=== PATIENT | female | born 1950 | race Caucasian/White ===

== ENCOUNTER → 2016-08-30 | Outpatient (CLI) | payer BC ==
[2014-09-04 13:33] VITALS: BP 122/59
--- NOTE | 2016-08-30 22:26 | RAD ---
LUMBAR SPINE RADIOGRAPHS CLINICAL HISTORY: 66-year-old female with low back pain. COMPARISON: None. FINDINGS: 3 views of the lumbar spine were obtained. There are 5 nonrib-bearing lumbar type vertebra l bodies. Levo rotatory scoliotic curvature of the lumbar spine apex L3. Vertebral body heights are maintained. Loss of disc space L1-L2 and L3-L4 with degenerative retrolisthesis L4 on L5. Vacuum di sc at L1-L2 and L3-L4. Diffuse anterior osteophytosis would facet hypertrophy from L4-S1. No acute f racture or malalignment There is no sacroiliac diastasis. IMPRESSION: 1. Multilevel degenerative change with levo rotatory scoliotic curvature . 2. No compression fracture deformity or malalignment on screening lumbar spine radiographs. Reported By:
--- NOTE | 2016-08-30 22:36 | RAD ---
HISTORY: 66-year-old female status post ORIF right ankle. Study: Three views right ankle. Comparison: Right ankle radiographs November 12, 2014. Findings: Talar dome is intact and ankle mortise is congruent. Lateral compression plate with anchoring screws transfix a well-healed distal fibular fracture. Compression screws within the medial malleolus greene sfixing malleolar fracture. No evidence of hardware loosening or failure. Imaged joints are congruen t. No fracture. Soft tissues unremarkable. IMPRESSION: 1. Status post ORIF right ankle fractures with good interval healing and no evidence of hardware fa ilure. No new fracture. Reported By:
--- NOTE | 2016-08-30 22:38 | RAD ---
HISTORY: 66-year-old female status post ORIF left ankle. Study: Three views left ankle. Comparison: None. Findings: Talar dome is intact . Ankle mortise is congruent. Compression plate with anchoring screws along the lateral aspect of the fibula without evidence of hardware failure. Single interosseous screw with m edial malleolar screw in both without evidence of hardware failure or loosening. Imaged joint spaces are congruent. No fractures. Soft tissues unremarkable. IMPRESSION: 1. Status post ORIF left ankle without evidence of hardware failure and no new fracture. Reported By:
--- NOTE | 2016-08-31 08:18 | MG ---
Examination: Bilateral screening mammogram. Clinical history: Routine screening. Technique: Digital CC and MLO views of both breasts were obtained. Computer aided detection analysis was performed and used during the interpretation. Comparison: 07/28/2015. Findings: The breasts are composed predominantly of fat. Benign-appearing calcifications are noted in the left breast. No suspicious mass, area of architectural distortion or suspicious cluster of microcalcifications is noted. Impression: 1. No mammographic evidence of malignancy. BI-RADS category 2-benign findings. Recommend routine annual screening mammogram. Diagnostic CAD was utilized and reviewed. * 0 (ZERO) - ASSESSMENT INCOMPLETE; ADDITIONAL IMAGING IS NEEDED. * 0C - ASSESSMENT INCOMPLETE, NEEDS ADDITIONAL IMAGING EVALUATION AND/OR PRIOR MAMMOGRAMS FOR COMPAR YOSEF. * 1/1 (ONE) - NEGATIVE. * 2/II (TWO) - BENIGN FINDINGS. * 3/III (THREE) - PROBABLY BENIGN FINDING; SHORT INTERVAL FOLLOW-UP SUGGESTED. * 4/IV (FOUR) - SUSPICIOUS ABNORMALITY; BIOPSY SHOULD BE CONSIDERED. * 5/V - HIGHLY SUSPICIOUS OF MALIGNANCY; BIOPSY SHOULD BE PERFORMED. * 6/IV - KNOWN BIOPSY PROVEN MALIGNANCY-APPROPRIATE ACTION SHOULD BE TAKEN. A NEGATIVE X-RAY REPORT SHOULD NOT DELAY BIOPSY IF A DOMINANT OR CLINICALLY SUSPICIOUS MASS IS PRESENT; 4 TO 8 PERCENT OF CANCERS ARE NOT IDENTIFIED BY X-RAY. A NEGATIVE REPORT MAY REINFORCE THE CLINICAL IMPRESSION. ADENOSIS AND DENSE BREASTS MAY OBSCURE AN UNDERLYING NEOPLASM. Reported By:
== END ==
LOC: RAD 19:22
PROVIDERS: ATTEND Internal Medicine
DX: Z12.31 Encounter for screening mammogram for malignant neoplasm of breast (principal); M54.5 Low back pain; M25.572 Pain in left ankle and joints of left foot; M25.571 Pain in right ankle and joints of right foot; Z98.890 Other specified postprocedural states
CPT/HCPCS: 72100; 73610; 77067

== ENCOUNTER → 2016-09-19 | Outpatient (CLI) | payer BC ==
[2014-09-04 13:33] VITALS: BP 122/59
--- NOTE | 2016-09-19 23:20 | RAD ---
HISTORY: Knee pain Study: Right knee series Comparison: None Findings: There is mild joint space narrowing in the knee. There are prominent osteophytes medially. There is moderate narrowing of the patellofemoral joint. No acute fracture for dislocation is seen there is n o joint effusion. The bones are osteopenic. 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 Reported By:
== END ==
LOC: RAD 11:10
PROVIDERS: ATTEND Internal Medicine
DX: M25.561 Pain in right knee (principal)
CPT/HCPCS: 73564

== ENCOUNTER → 2016-09-27 | Outpatient (CLI) | payer BC ==
[2014-09-04 13:33] VITALS: BP 122/59
--- NOTE | 2016-09-27 13:54 | MRI ---
MRI right knee without contrast Indication: Right knee pain after fall Technique: Multiplanar, multi sequence imaging of the right knee without IV contrast administration. Findings: The extensor mechanism is intact. There is a small-sized suprapatellar joint effusion. There is full thickness chondral loss within the patellar articular cartilage with subchondral marrow edema and c ystic change within the median patellar ridge. The patella remains well positioned within the femora l trochlea. The medial lateral retinacular complexes are intact. Subcortical cyst formation is also noted within the femoral trochlea with small trochlear osteophytes present. There is a small poplite al fossa cyst. Pes anserine tendons are normal. Popliteus muscle is normal. There is a large complex fluid collection within the anterior knee measuring approximately 8.4 x 1.8 x 7.3 cm containing multiple strands of decreased PD signal. No fluid fluid level or hemorrhage . The medial femorotibial compartment demonstrates diffuse chondral thinning and a few small subchondr al cyst without full thickness chondral loss identified. There is extra-articular full thickness cho ndral loss within the lateral femoral condyle anteriorly. Small osteophytes are noted within the med ial and lateral femorotibial compartments. Cruciate and collateral ligaments are intact. Biceps femo ris and iliotibial band are normal. The medial and lateral menisci are intact. Impression: 1.Large subcutaneous fluid collection anterior to the patella most likely represents prepatellar bur sitis containing debris, given lack of air-fluid level or definite increased T1 signal the possibili ty of a soft tissue contusion is felt less likely but not entirely excluded and clinical correlation is needed. 2. Moderate patellofemoral and mild to moderate medial and lateral femorotibial compartment degenera tive change. 3. No acute ligamentous or meniscal tear. 4. Small suprapatellar joint effusion and popliteal fossa cyst. Reported By:
== END ==
LOC: RAD 09:48
PROVIDERS: ATTEND Internal Medicine
DX: M25.561 Pain in right knee (principal); Z91.81 History of falling; Z87.828 Personal history of other (healed) physical injury and trauma
CPT/HCPCS: 73721

== ENCOUNTER 2016-10-19 14:28 | Emergency (ER) | payer BC ==
[2016-10-19] MEDS ORDERED: NS 1000 ML 1,000 ML ONE ×2 (14:29→15:34)
[2016-10-19] MEDS ORDERED: ZOFRAN INJ 4 MG VIAL ONE (14:30)
[2016-10-19] MEDS ORDERED: ZOFRAN INJ 4 MG VIAL IVP ONE (14:41)
[2016-10-19] MEDS ORDERED: NS 1000 ML 1,000 ML IV ONE (14:41)
[2016-10-19 14:47] VITALS: BP 160/78; BMI 34.0
--- NOTE | 2016-10-19 14:47 | DR.GENAD ---
HPI - PCP Primary Care Physician: [id number] - Complaint/Symptoms Chief Complaint Doctors Comments: Patient states that she has had vomiting for one day and epigastric pain. She denies diarrhea. Admits to fever and headache. PMH - PMH Past Surgical History: Yes Surgical History: Appendectomy, Ortho Surgery (LLE fx w/surgery) - Family History Family Medical History: Hypertension - Social History Do you use any recreational Drugs:: No ROS - Review of Systems Constitutional: No Symptoms Reported Eyes: No Symptoms Reported ENTM: No Symptoms Reported Respiratoy: No Symptoms Reported Cardiovascular: No Symptoms Reported Gastrointestinal/Abdominal: Abdominal Pain (epigastric), Vomiting Genitourinary: No Symptoms Reported Neurological: No Symptoms Reported Musculoskeletal: No Symptoms Reported Integumentary: No Symptoms Reported Hematologic/Lymphatic: No Symptoms Reported Endocrine: No Symptoms Reported Psychiatric: No Symptoms Reported All Other Systems: Reviewed and Negative PE - Vital Signs Vitals: Temperature 98.2 F Pulse Rate 88 Respiratory Rate 18 Blood Pressure [Right Arm] 122/59 Blood Pressure [Left Arm] 119/61 Blood Pressure 160/78 O2 Sat by Pulse Oximetry 99 - General Limitations: No Limitations General Appearance: Alert, In No Apparent Distress - Head Head Exam: Normal Inspection, Atraumatic - Eyes Eye exam: Normal Appearance, PERRL, EOMI - ENT ENT Exam: Normal Exam External Ear Exam: Normal External Inspection TM/Canal Exam: Bilateral Normal Nose Exam: Normal Nose Exam, Sinus Tenderness Mouth Exam: Normal Inspection Throat Exam: Normal Inspection - Neck Neck Exam: Normal Inspection - Chest Chest Inspection: Normal Inspection - Respiratory Respiratory Exam: Normal Lung Sounds Bilat Respiratory Exam: Bilateral Clear to Auscultation - Cardiovascular Cardiovascular Exam: Regular Rate, Normal Rhythm - Abdominal Exam Abdominal Exam: Normal Inspection, Normal Bowel Sounds, Soft Abdominal Tenderness: Epigastrium, Suprapubic, Diffuse - Extremities Extremities Exam: negative: Normal Inspection, Full ROM, Tenderness, Normal Capillary Refill, Edema, Joint Swelling, Calf Tenderness, Other - Back Back Exam: Normal Inspection, Full ROM - Neurologic Neurological Exam: Alert, Oriented X3, CN II-XII Intact - Psychiatric Psychiatric Exam: Normal Affect, Normal Mood - Skin Skin Exam: Warm, Dry, Intact ROR - Labs Reviewed Laboratory Results Reviewed?: Yes (H pylori positive) Result Diagrams: 10/19/16 14:45 10/19/16 14:45 Laboratory: WBC 6.6 X10^3/uL (3.6-10.0) 10/19/16 14:45 RBC 4.03 X10^6/uL (3.5-5.4) 10/19/16 14:45 Hgb 13.4 g/dL (12.0-16.0) 10/19/16 14:45 Hct 40.1 % (36.0-47.0) 10/19/16 14:45 MCV 99.5 fL (80.0-100.0) 10/19/16 14:45 MCH 33.1 pg (27.0-34.0) 10/19/16 14:45 MCHC 33.3 g/dL (33.0-35.0) 10/19/16 14:45 RDW 13.7 % (11.6-16.5) 10/19/16 14:45 Plt Count 204 X10^3/uL (150.0-450.0) 10/19/16 14:45 MPV 8.4 fL (7.4-11.0) 10/19/16 14:45 Neut % 71.9 % (42.0-75.0) 10/19/16 14:45 Lymph % 18.2 % (21.0-51.0) L 10/19/16 14:45 [place] % 8.4 % (0.0-13.0) 10/19/16 14:45 Eos % 0.7 % (0.9-2.9) L 10/19/16 14:45 Baso % 0.8 % (0.2-1.0) 10/19/16 14:45 Neut # 4.7 x10^3/uL (2.2-4.8) 10/19/16 14:45 Lymph # 1.2 X10^3/uL (1.3-2.9) L 10/19/16 14:45 [place] # 0.6 x10^3/uL (0.3-0.8) 10/19/16 14:45 Eos # 0.0 x10^3/uL (0.0-0.2) 10/19/16 14:45 Baso # 0.1 X10^3/uL (0.0-0.1) 10/19/16 14:45 Absolute Nucleated RBC 0.2 /100WBC 10/19/16 14:45 Sodium 145 mmol/L (136-145) 10/19/16 14:45 Corrected Sodium TNP 10/19/16 14:45 Potassium 3.7 mmol/L (3.5-5.1) 10/19/16 14:45 Chloride 111 mmol/L (98-107) H 10/19/16 14:45 Carbon Dioxide 27.6 mmol/L (21-32) 10/19/16 14:45 BUN 14 mg/dL (7-18) 10/19/16 14:45 Creatinine 0.84 mg/dL (0.55-1.02) 10/19/16 14:45 Est GFR (MDRD) Af Amer > 60 (>60) 10/19/16 14:45 Est GFR (MDRD) Non-Af > 60 (>60) 10/19/16 14:45 Glucose 104 mg/dL (65-99) H 10/19/16 14:45 Calcium 8.6 mg/dL (8.5-10.1) 10/19/16 14:45 Corrected Calcium 9.4 mg/dL (8.5-10.1) 10/19/16 14:45 Total Bilirubin 0.30 mg/dL (0.2-1.0) 10/19/16 14:45 AST 15 Units/L (15-37) 10/19/16 14:45 ALT 26 Units/L (12-78) 10/19/16 14:45 Alkaline Phosphatase 45 Units/L (46-116) L 10/19/16 14:45 Total Protein 6.5 g/dL (6.4-8.2) 10/19/16 14:45 Albumin 3.0 g/dL (3.4-5.0) L 10/19/16 14:45 Globulin 3.5 g/dL (2.5-4.5) 10/19/16 14:45 Albumin/Globulin Ratio 0.9 Ratio (1.1-2.1) L 10/19/16 14:45 Amylase 119 Units/L (25-115) H 10/19/16 14:45 Lipase 360 Units/L (73-393) 10/19/16 14:45 H. pylori IgG Antibody Positive (NEGATIVE) A 10/19/16 14:45 Influenza A (H1N1) PCR Not detected (NOT DETECT) 10/19/16 14:58 Influenza Type A (PCR) Negative (NEGATIVE) 10/19/16 14:58 Influenza Type B (PCR) Negative (NEGATIVE) 10/19/16 14:58 Streptococcus Screen Negative (NEGATIVE) 10/19/16 14:58 - XRAY XRAY Interpreted by: Radiologist - Diagnosis Discharge Problem: Helicobacter pylori gastritis Vomiting Qualifiers: Vomiting type: unspecified Vomiting Intractability: non-intractable Nausea presence: with nausea Qualified Code(s): R11.2 - Nausea with vomiting, unspecified - Discharge Plan Condition: Stable - Follow ups/Referrals Follow ups/Referrals: Gerber Rios [Primary Care Provider] - 3 days - Instructions
[2016-10-19] MEDS ORDERED: MORPHINE SULFATE INJ 4 MG IVP ONE (14:48)
[2016-10-19 15:05] LABS: BASOPHILS # (AUTO) 0.1 X10^3/uL (0.0-0.1); BASOPHILS % (AUTO) 0.8 % (0.2-1.0); EOSINOPHILS % (AUTO) 0.7 % (0.9-2.9); HEMATOCRIT 40.1 % (36.0-47.0); HEMOGLOBIN 13.4 g/dL (12.0-16.0); LYMPHOCYTES # (AUTO) 1.2 X10^3/uL (1.3-2.9); LYMPHOCYTES % (AUTO) 18.2 % (21.0-51.0); MEAN CORPUSCULAR HEMOGLOBIN 33.1 pg (27.0-34.0); MEAN CORPUSCULAR HGB CONC 33.3 g/dL (33.0-35.0); MEAN CORPUSCULAR VOLUME 99.5 fL (80.0-100.0); MEAN PLATELET VOLUME 8.4 fL (7.4-11.0); MONOCYTES # (AUTO) 0.6 x10^3/uL (0.3-0.8); MONOCYTES % (AUTO) 8.4 % (0.0-13.0); NEUTROPHILS # (AUTO) 4.7 x10^3/uL (2.2-4.8); NEUTROPHILS % (AUTO) 71.9 % (42.0-75.0); PLATELET COUNT 204 X10^3/uL (150.0-450.0); RED BLOOD COUNT 4.03 X10^6/uL (3.5-5.4); RED CELL DISTRIBUTION WIDTH 13.7 % (11.6-16.5); WHITE BLOOD COUNT 6.6 X10^3/uL (3.6-10.0)
[2016-10-19 15:17] LABS: ALANINE AMINOTRANSFERASE 26 Units/L (12-78); ALKALINE PHOSPHATASE 45 Units/L (46-116); AMYLASE 119 Units/L (25-115); ASPARTATE AMINO TRANSFERASE 15 Units/L (15-37); BLOOD UREA NITROGEN 14 mg/dL (7-18); CALCIUM 8.6 mg/dL (8.5-10.1); CARBON DIOXIDE 27.6 mmol/L (21-32); CHLORIDE 111 mmol/L (98-107); COR CA(FOR HYPOALB) 9.4 mg/dL (8.5-10.1); CREATININE 0.84 mg/dL (0.55-1.02); GLUCOSE 104 mg/dL (65-99); LIPASE 360 Units/L (73-393); SODIUM 145 mmol/L (136-145); TOTAL PROTEIN 6.5 g/dL (6.4-8.2); eGFR BLACK RACES > 60 (>60); eGFR NON BLACK RACES > 60 (>60)
[2016-10-19] MEDS ORDERED: MORPHINE SULFATE INJ 4 MG ONE (15:32)
[2016-10-19] MEDS ORDERED: BIAXIN TAB 500 MG PO ONE (17:48)
[2016-10-19] MEDS ORDERED: ZOFRAN TAB 4 MG ONE (17:48)
[2016-10-19] MEDS ORDERED: AMOXIL CAP 500 MG PO ONE (17:50)
[2016-10-19] MEDS ORDERED: PREVACID PO ONE (17:55)
[2016-10-19] MEDS ORDERED: LEVSIN/MAALOX/LIDOC VISC PO ONE (18:01)
[2016-10-19] MEDS ORDERED: LEVSIN/MAALOX/LIDOC VISC ONE (18:01)
== END 2016-10-19 18:19 | disposition home or self-care (01) ==
LOC: ER 14:28
DX: R11.2 Nausea with vomiting, unspecified (principal); B96.81 Helicobacter pylori [H. pylori] as the cause of diseases classified elsewhere
CPT/HCPCS: 36415; 80053; 82150; 83690; 85025; 86677; 87070; 87502; 87503; 87880; 96365; 96374; 96375; 99283; 99284; A4222; S0181; J2270; J2405

== ENCOUNTER → 2016-11-09 | Outpatient (CLI) | payer BC ==
[2016-10-19 14:47] VITALS: BP 160/78
[2016-11-09 09:01] LABS: T4 (THYROXINE) 7.7 ug/dL (4.7-13.3); TSH (3RD GENERATION) 3.106 uIU/mL (0.358-3.74)
== END | disposition home or self-care (01) ==
LOC: LAB 07:52
PROVIDERS: ATTEND Internal Medicine
DX: E03.8 Other specified hypothyroidism (principal); E55.9 Vitamin D deficiency, unspecified; E53.8 Deficiency of other specified B group vitamins
CPT/HCPCS: 36415; 82306; 82607; 82746; 84436; 84443

== ENCOUNTER → 2017-09-26 | Outpatient (CLI) | payer BC ==
--- NOTE | 2017-09-27 13:33 | MG ---
HISTORY: SCREENING Comparison: 08/30/16 and 07/28/15 FINDINGS: Bilateral CC and MLO projections of the right and left breast were obtained. Scattered fibroglandula r tissue is seen to be present without significant interval change. No suspicious architectural dist ortion, mass or clustered microcalcifications can be observed to suggest malignancy. No skin thicken ing or nipple retraction is appreciated. No pathological lymphadenopathy can be identified. Benign- appearing calcifications are noted within the right and left breast. IMPRESSION: NO RADIOGRAPHIC EVIDENCE OF MALIGNANCY. ACR CATEGORY 2 - benign findings. FOLLOW-UP EXAM 1 YEAR. Diagnostic CAD was utilized and reviewed. * 0 (ZERO) - ASSESSMENT INCOMPLETE; ADDITIONAL IMAGING IS NEEDED. * 1/1 (ONE) - NEGATIVE. * 2/II (TWO) - BENIGN FINDINGS. * 3/III (THREE) - PROBABLY BENIGN FINDING; SHORT INTERVAL FOLLOW-UP SUGGESTED. * 4/IV (FOUR) - SUSPICIOUS ABNORMALITY; BIOPSY SHOULD BE CONSIDERED. * 5/V - HIGHLY SUSPICIOUS OF MALIGNANCY; BIOPSY SHOULD BE PERFORMED. A NEGATIVE X-RAY REPORT SHOULD NOT DELAY BIOPSY IF A DOMINANT OR CLINICALLY SUSPICIOUS MASS IS PRESENT; 4 TO 8 PERCENT OF CANCERS ARE NOT IDENTIFIED BY X-RAY. A NEGA TIVE REPORT MAY REINFORCE THE CLINICAL IMPRESSION. ADENOSIS AND DENSE BREASTS MAY OBSCURE AN UNDERLY ING NEOPLASM. Reported By:
== END ==
LOC: RAD 08:20
PROVIDERS: ATTEND Specialist
DX: Z12.31 Encounter for screening mammogram for malignant neoplasm of breast (principal)
CPT/HCPCS: 77067

== ENCOUNTER 2021-10-15 17:11 | Observation (INO) ==
[2021-10-15 17:21] VITALS: BMI 25.8
--- NOTE | 2021-10-15 17:44 | DR.AMS ---
HPI Time Seen Time Seen by Provider: 10/15/21 17:33 PCP Primary Care Physician: DR GRADY HPI Comment HPI Comment: A 71 y/o female presenting with witnessed confusional states at work. Reportedly this lasted several minutes. She was not her usual self, was not following commands or prompts and had slurred speech. She is s/p recent ORIF of an ankle fracture. Complaint Chief Complaint:: PT WAS WORKING WHEN SUDDENLY PT HAD EPISODE OF ALTERED MENTAL STATUS WITH SLURRED SPEECH AND UNABLE TO DETERMINE WHAT WAS GOING ON AROUND HER. THIS WAS WITNESSED BY COWORKERS WHO STATED THAT EPISODE LASTED APPROXIMATELY 3-4 MINUTES. AT TIME OF TRIAGE PT IS AWAKE, ALERT AND ORIENTED. COVID-19 Coronavirus risk:travel/contact w/high risk person: No Has patient experienced Coronavirus symptoms: No Reviewed Nurses Notes Reviewed: Yes Source History Provided: Patient and Other (Co-workers. ) Mode of Arrival Mode of Arrival: Wheelchair Timing Onset of Chief Complaint: 10/15/21 Came On: Gradually Symptoms: Improving Symptom Onset: Known Duration How lon Duration: Minutes Quality Quality: Decreased Alertness and Change in Behavior Severity Severity: Moderate Context Recent: None History Of: None Associated Signs and Symptoms Associated Signs and Symptoms: Slurred Speech, Confusion and Decreased LOC PMH PMH Past Medical History: Yes Past Medical History: Hypothyroidism Past Surgical History: Yes Surgical History: Ortho Surgery Family History History of Family Medical Conditions: Yes Family Medical History: Heart Failure Social History Does patient currently use any type of tobacco product: No Have you used tobacco products in the last 12 months: No Type of Tobacco Use: None Does any household member use tobacco: No Alcohol Use: None Do you use any recreational Drugs:: No Lives With: Family Lives Where: Home Travel Risk Coronavirus risk:travel/contact w/high risk person: No Has patient experienced Coronavirus symptoms: No Infectious screening In the last 2 months have you had wt loss of >10#?: NO Have you had fever, night sweats or hemotysis?: No Have you traveled outside the country in the last 6 months?: No Isolation: Standard ROS Review of Systems Constitutional: No Symptoms Reported Eyes: No Symptoms Reported ENTM: No Symptoms Reported Respiratoy: No Symptoms Reported Cardiovascular: No Symptoms Reported Gastrointestinal/Abdominal: No Symptoms Reported Genitourinary: No Symptoms Reported Neurological: Other (Confusion and slurred speech) Musculoskeletal: No Symptoms Reported Integumentary: No Symptoms Reported Hematologic/Lymphatic: No Symptoms Reported Endocrine: No Symptoms Reported Psychiatric: No Symptoms Reported PE Vitals Vital Signs: Temp Pulse Resp BP BP BP Pulse Ox 10/15/21 18:30 75 19 100 10/15/21 18:15 75 19 100 10/15/21 18:03 78 99 10/15/21 17:45 81 10/15/21 17:30 78 26 H 100 10/15/21 17:19 80 20 100 10/15/21 17:13 98.1 F 80 20 114/75 98 12/12/20 22:52 113/55 12/12/20 22:30 113/55 09/01/14 16:00 119/61 General Limitations: No Limitations General Appearance: Alert and In No Apparent Distress Head Head Exam: Normal Inspection, Atraumatic and Normocephalic Eyes Eye exam: Normal Appearance, PERRL and EOMI ENT ENT Exam: Normal Exam, Normal Oropharynx, Normal External Ear Exam and Mucous Membranes Moist Neck Neck Exam: Normal Inspection, Full ROM and Trachea Midline Chest Chest Inspection: Normal Inspection and Symmetric Chest Wall Rise Respiratory Respiratory Exam: Normal Lung Sounds Bilat Cardiovascular Cardiovascular Exam: Regular Rate, Normal Rhythm, Normal Heart Sounds, +S1 and +S2 Abdominal Exam Abdominal Exam: Normal Inspection, Normal Bowel Sounds and Soft Extremities Extremities Exam: Normal Inspection and Full ROM Back Back Exam: Normal Inspection and Full ROM Neurological Neurological Exam: Alert, Oriented X3 and CN II-XII Intact Psychological Psychiatric Exam: Normal Affect and Normal Mood Skin Skin Exam: Intact MDM Differential Diagnosis Metabolic: Hypoglycemia and Hyponatremia Structural: CVA COURSE Treatment Treatment: I discussed diagnostic test results with the pt. and recommended OBSERVATION STATUS for her. I then spoke with source water protection specialist provider, Dr. Kelley about the pt. (regards to presentation and findings). Dr. Kelley also agreed with recommendation for observation status. Admit orders have been placed. Reevaluation 1st: Improved (her confusional state has resolved. ) Education/Counseling Education/Counseling: Patient, Education and Counseling Educated On: Treatment, Diagnosis, Prognosis and Needs for Follow Up ROR Labs Reviewed Laboratory Results Reviewed?: Yes Result Diagrams: 10/15/21 17:30 10/15/21 17:30 Laboratory: WBC 10.2 X10^3/uL (3.6-10.0) H 10/15/21 17:30 RBC 3.68 X10^6/uL (3.5-5.4) 10/15/21 17: Hgb 11.6 g/dL (12.0-16.0) L 10/15/21 17: Hct 34.4 % (36.0-47.0) L 10/15/21: MCV 93.2 fL (80.0-100.0) 10/15/21: MCH 31.5 pg (27.0-34.0) 10/15/21 17: MCHC 33.8 g/dL (33.0-35.0) 10/15/21: RDW 13.6 % (11.6-16.5) 10/15/21: Plt Count 275 X10^3/uL (150.0-450.0) 10/15/21: MPV 7.3 fL (7.4-11.0) L 10/15/21: Neut % (Auto) 66.2 % (42.0-75.0) 10/15/21 17: Lymph % (Auto) 22.5 % (21.0-51.0) 10/15/21: [place] % (Auto) 7.5 % (0.0-13.0) 10/15/21: Eos % (Auto) 3.3 % (0.9-2.9) H 10/15/21: Baso % (Auto) 0.5 % (0.2-1.0) 10/15/21 17: Neut # (Auto) 6.8 x10^3/uL (2.2-4.8) H 10/15/21 17: Lymph # (Auto) 2.3 X10^3/uL (1.3-2.9) 10/15/21 17:30 [place] # (Auto) 0.8 x10^3/uL (0.3-0.8) 10/15/21 17: Eos # (Auto) 0.3 x10^3/uL (0.0-0.2) H 10/15/21 17:30 Baso # (Auto) 0.0 X10^3/uL (0.0-0.1) 10/15/21 17:30 Absolute Nucleated RBC 0.1 /100WBC 10/15/21 17:30 PT 12.2 SECONDS (11.8-14.3) 10/15/21 17:30 INR Target Range - 10/15/21 17: INR 0.93 (0.8-1.3) 10/15/21 17:30 APTT 27.5 SECONDS (22.9-36.5) 10/15/21 17: PTT Comment - 10/15/21 17:30 Sodium 130 mmol/L (136-145) L 10/15/21 17:30 Corrected Sodium 131 mmol/L (136-145) L 10/15/21 17:30 Potassium 3.7 mmol/L (3.5-5.1) 10/15/21 17:30 Chloride 94 mmol/L (98-107) L 10/15/21 17:30 Carbon Dioxide 29.2 mmol/L (21-32) 10/15/21 17:30 BUN 22 mg/dL (7-18) H 10/15/21 17:30 Creatinine 1.50 mg/dL (0.55-1.02) H 10/15/21 17:30 Est GFR (MDRD) Af Amer 44 (>60) L 10/15/21 17:30 Est GFR (MDRD) Non-Af 37 (>60) L 10/15/21 17:30 Glucose 131 mg/dL (65-99) H 10/15/21 17:30 Calcium 8.7 mg/dL (8.5-10.1) 10/15/21 17:30 Corrected Calcium 9.4 mg/dL (8.5-10.1) 10/15/21 17:30 Total Bilirubin 0.20 mg/dL (0.2-1.0) 10/15/21 17:30 AST 15 Units/L (15-37) 10/15/21 17:30 ALT 10 Units/L (12-78) L 10/15/21 17:30 Alkaline Phosphatase 73 Units/L (46-116) 10/15/21 17:30 Creatine Kinase 43 Units/L (26-192) 10/15/21 17:30 CK-MB (CK-2) 1.1 ng/mL (0-4.0) 10/15/21 17:30 CK/CKMB % Calc 2.6 % (<4) 10/15/21 17:30 Troponin I High Sens 7.1 ng/L (4.0-60.0) 10/15/21 17:30 Total Protein 6.6 g/dL (6.4-8.2) 10/15/21 17:30 Albumin 3.1 g/dL (3.4-5.0) L 10/15/21 17:30 Globulin 3.5 g/dL (2.5-4.5) 10/15/21 17:30 Albumin/Globulin Ratio 0.9 Ratio (1.1-2.1) L 10/15/21 17:30 Specimen Type Clean catch urine 10/15/21 17:55 Urine Color Pale yellow (YELLOW) 10/15/21 17:55 Urine Appearance Clear (CLEAR) 10/15/21 17:55 Urine pH 6.0 (5.0 - 8.0) 10/15/21 17:55 Ur Specific [place] 1.010 (1.000-1.030) 10/15/21 17:55 Urine Protein Negative (NEGATIVE) 10/15/21 17:55 Urine Glucose (UA) Negative (NEGATIVE) 10/15/21 17:55 Urine Ketones Negative (NEGATIVE) 10/15/21 17:55 Urine Blood Negative (NEGATIVE) 10/15/21 17:55 Urine Nitrite Negative (NEGATIVE) 10/15/21 17:55 Urine Bilirubin Negative (NEGATIVE) 10/15/21 17:55 Urine Urobilinogen Normal (NORMAL) 10/15/21 17:55 Ur Leukocyte Esterase Negative (NEGATIVE) 10/15/21 17:55 XRAY XRAY Interpreted by: Self X-ray Results: CXR: No acute findings. Radiology report is pending. EKG Rate: 77 [place]: Normal Rhythm: NSR Block: None Hypertrophy: None ST: Normal Opioid Opioid Risk Tool Age (Ja box if 16-45): No History of Preadolescent Sexual Abuse: No Total: 0 Total Score Risk Category: Low Risk Copyright: [facility] predicting aberrant behaviors Diagnosis Discharge Problem: Brain TIA, Acute hyponatremia, Dehydration ADDITIONAL NOTES Additional Notes Additional Notes: Name: Mickie MEDRANO#: [id number]: [id number] : 1950ex: FLocation: ER Order Number(s): [id number](s):BRAIN W/O CON Ordering Physician: JOSE F BAKER Primary Care: Gerber Uziel Grady Service Date: 10/15/21 Service Time: 1721 HISTORY AMS.brCOWORKERS NOTICED SLURRED SPEECH STUDY BRAIN W/O CON COMPARISON None TECHNIQUE Mult iple axial images of the head without contrast. Dose reduction techniques including Automated Exposure Control (AEC) and adjustment of mA and kV were utilized. Contrast: None FINDINGS BRAIN PARENCHYMA: No acute hemorrhage, infarct, mass, or mass effect. Jain-white differentiation is maintained. The brain parenchyma has normal density. VENTRICLES/EXTRA-AXIAL SPACES: Normal size and configuration. No hydrocephalus or extra-axial fluid collections. EXTRACRANIAL STRUCTURES:Normal bones and soft tissues. Visualized paranasal sinuses and mastoids are clear. IMPRESSION Normal CT head. Electronically signed by: Mike Joe (October 15, 2021 18:13:01) Report Electronically signed: 10/15/21 [id number] CC: Jose F Baker
[2021-10-15 17:57] LABS: MEAN PLATELET VOLUME 7.3 fL (7.4-11.0)
[2021-10-15 18:04] LABS: BASOPHILS % (AUTO) 0.5 % (0.2-1.0); EOSINOPHILS # (AUTO) 0.3 x10^3/uL (0.0-0.2); EOSINOPHILS % (AUTO) 3.3 % (0.9-2.9); HEMATOCRIT 34.4 % (36.0-47.0); HEMOGLOBIN 11.6 g/dL (12.0-16.0); LYMPHOCYTES # (AUTO) 2.3 X10^3/uL (1.3-2.9); LYMPHOCYTES % (AUTO) 22.5 % (21.0-51.0); MEAN CORPUSCULAR HEMOGLOBIN 31.5 pg (27.0-34.0); MEAN CORPUSCULAR HGB CONC 33.8 g/dL (33.0-35.0); MEAN CORPUSCULAR VOLUME 93.2 fL (80.0-100.0); MONOCYTES # (AUTO) 0.8 x10^3/uL (0.3-0.8); MONOCYTES % (AUTO) 7.5 % (0.0-13.0); NEUTROPHILS # (AUTO) 6.8 x10^3/uL (2.2-4.8); NEUTROPHILS % (AUTO) 66.2 % (42.0-75.0); RED BLOOD COUNT 3.68 X10^6/uL (3.5-5.4); RED CELL DISTRIBUTION WIDTH 13.6 % (11.6-16.5); WHITE BLOOD COUNT 10.2 X10^3/uL (3.6-10.0)
[2021-10-15 18:10] LABS: BILIRUBIN,URINE NEGATIVE (NEGATIVE); BLOOD/HEMOGLOBIN,URINE NEGATIVE (NEGATIVE); GLUCOSE, URINE NEGATIVE (NEGATIVE); KETONES,URINE NEGATIVE (NEGATIVE); LEUKOCYTE ESTERASE ,URINE NEGATIVE (NEGATIVE); NITRITES,URINE NEGATIVE (NEGATIVE); PROTEIN,URINE NEGATIVE (NEGATIVE); UROBILINOGEN,URINE NORMAL (NORMAL)
[2021-10-15 18:14] LABS: APPEARANCE,URINE CLEAR (CLEAR); COLOR,URINE PALE YELLOW (YELLOW)
--- NOTE | 2021-10-15 18:14 | CT ---
HISTORYAMS.brCOWORKERS NOTICED SLURRED SPEECHSTUDYBRAIN W/O CONCOMPARISONNoneTECHNIQUEMult iple axial images of the head without contrast. Dose reduction techniques including Automated Exposure Control (AEC) and adjustment of mA and kV were utilized.Contrast: NoneFINDINGSBRAIN PARENCHYMA: No acute hemorrhage, infarct, mass, or mass effect.Jain-white differentiation is maintained.The brain parenchyma has normal density.VENTRICLES/EXTRA-AXIAL SPACES: Normal size and configuration. No hydrocephalus or extra-axial fluid collections.EXTRACRANIAL STRUCTURES:Normal bones and soft tissues. Visualized paranasal sinuses and mastoids are clear.IMPRESSIONNormal CT head.Electronically signed by: Mike Joe (October 15, 2021 18:13:01)
[2021-10-15 18:20] LABS: ALBUMIN 3.1 g/dL (3.4-5.0); CALCIUM 8.7 mg/dL (8.5-10.1); CARBON DIOXIDE 29.2 mmol/L (21-32); COR CA(FOR HYPOALB) 9.4 mg/dL (8.5-10.1); CREATININE 1.5 mg/dL (0.55-1.02); TOTAL PROTEIN 6.6 g/dL (6.4-8.2)
[2021-10-15 18:46] LABS: CKMB % 2.6 % (<4); CREATINE KINASE MB 1.1 ng/mL (0-4.0)
--- NOTE | 2021-10-15 19:05 | RAD ---
HISTORYCONFUSION, TRANSIENT Relevant Clinical InformationSTUDYCHEST, 1 [id number]/28/2020.FINDINGSThe trachea is midline. The cardiac silhouette is unremarkable. There is nonspecific prominence of the interstitial markings. There is no focal lobar opacity and no pleural effusion. The bony thorax is unremarkable.IMPRESSIONMild prominence of the interstitial markings. Question interstitial edema..Electronically signed by: Mike Joe (October 15, 2021 19:04:17)
[2021-10-15] MEDS ORDERED: NS 1,000 ML IV 1,000 ML ONE (19:23)
[2021-10-15] MEDS: NS 1,000 ML IV 1,000 ML IV SCH (19:27)
[2021-10-15] MEDS ORDERED: NS 1,000 ML IV 1,000 ML IV SCH (20:00)
[2021-10-15] MEDS ORDERED: VALIUM PO SCH (21:00)
[2021-10-16 03:04] LABS: MEAN CORPUSCULAR VOLUME 92.8 fL (80.0-100.0); MEAN PLATELET VOLUME 6.9 fL (7.4-11.0); RED CELL DISTRIBUTION WIDTH 13.8 % (11.6-16.5)
[2021-10-16 03:07] LABS: BASOPHILS # (AUTO) 0.1 X10^3/uL (0.0-0.1); BASOPHILS % (AUTO) 0.8 % (0.2-1.0); EOSINOPHILS # (AUTO) 0.3 x10^3/uL (0.0-0.2); EOSINOPHILS % (AUTO) 3.6 % (0.9-2.9); HEMATOCRIT 32.5 % (36.0-47.0); HEMOGLOBIN 11.1 g/dL (12.0-16.0); LYMPHOCYTES # (AUTO) 2.2 X10^3/uL (1.3-2.9); LYMPHOCYTES % (AUTO) 25.3 % (21.0-51.0); MEAN CORPUSCULAR HEMOGLOBIN 31.5 pg (27.0-34.0); MONOCYTES # (AUTO) 0.8 x10^3/uL (0.3-0.8); MONOCYTES % (AUTO) 9.5 % (0.0-13.0); NEUTROPHILS # (AUTO) 5.4 x10^3/uL (2.2-4.8); NEUTROPHILS % (AUTO) 60.8 % (42.0-75.0); WHITE BLOOD COUNT 8.8 X10^3/uL (3.6-10.0)
[2021-10-16 03:15] LABS: ALANINE AMINOTRANSFERASE 8 Units/L (12-78); ALBUMIN 2.8 g/dL (3.4-5.0); ALKALINE PHOSPHATASE 73 Units/L (46-116); ASPARTATE AMINO TRANSFERASE 12 Units/L (15-37); BLOOD UREA NITROGEN 19 mg/dL (7-18); CALCIUM 8.3 mg/dL (8.5-10.1); CARBON DIOXIDE 28.4 mmol/L (21-32); CHLORIDE 100 mmol/L (98-107); COR CA(FOR HYPOALB) 9.3 mg/dL (8.5-10.1); COR NA(FOR HYPERGLY) 135 mmol/L (136-145); CREATININE 1.11 mg/dL (0.55-1.02); SODIUM 135 mmol/L (136-145); TOTAL PROTEIN 6.1 g/dL (6.4-8.2); eGFR NON BLACK RACES 52 (>60)
[2021-10-16 03:24] LABS: CKMB % 2.9 % (<4); CREATINE KINASE 35 Units/L (26-192); CREATINE KINASE MB < 1.0 ng/mL (0-4.0)
[2021-10-16] MEDS: TYLENOL 325 MG TAB PO PRN ×2 (04:00→11:43)
[2021-10-16] MEDS: NS 1,000 ML IV 1,000 ML IV SCH ×2 (04:01→11:10)
[2021-10-16] MEDS ORDERED: DOXYCYCLINE HYCLATE 20 MG PO SCH (10:15)
[2021-10-16] MEDS ORDERED: GLUCOSAMINE MSM MAGNESIUM VITC PO SCH (10:15)
--- NOTE | 2021-10-16 10:50 | DR.CARTERS ---
Short Stay Summary - Admission Date Date of Admission: 10/15/21 - Discharge Date Discharge Date: 10/16/21 - Admission Diagnoses (1) Brain TIA Status: Acute (2) Acute hyponatremia Status: Acute (3) Dehydration Status: Acute - Hospital Course Hospital Course: IS A 71 YEAR OLD PATIENT OF OURS. SHE PRESENTED TO THE ER WITH SUDDEN ONSET AMS, SLURRED SPEECH, AND DECREASED LOC WHILE AT WORK TODAY. WITNESSES REPORTED THAT THIS EPISODE LASTED APPROXIMATELY 3-4 MINUTES. THEY REPORTED THAT PATIENT WAS UNABLE TO FOLLOW COMMANDS OR PROMPTS. PATIENT IS STATUS POST LEFT KNEE REPLACEMENT. PMH INCLUDES GERD, HYPOTHYROIDISM, HYPERLIPIDEMIA. ON ARRIVAL TO THE ER, VITALS WERE 98.1-80-20-98%-114/75. LABS WERE OBTAINED. WBC 10.2, RBC 3.68, HGB 11.6, HCT 34.4, PLT COUNT 275, SODIUM 130, POTASSIUM 3.7, CHLORIDE 94, BUN 22, CREATININE 1.50, GLUCOSE 131, CALCIUM 8.7, TOTAL BILI 0.20, AST 15, ALT 10, ALK PHOS 73, TOTAL PROTEIN 6.6, ALBUMIN 3.1. CARDIAC ENZYMES WERE WITHIN NORMAL LIMITS. URINALYSIS WAS UNREMARKABLE. COVID-[address] WAS OBTAINED AND WAS NEGATIVE FOR ACUTE PROCESS. EKG REVEALED: NSR WITH HR 77. A CHEST XRAY WAS OBTAINED AND REVEALED: Mild prominence of the interstitial markings. Question interstitial edema. PATIENT WAS ADMITTED FOR FURTHER EVALUATION AND TREATMENT OF HYPONATREMIA, DEHYDRATION, AND TIA. SHE WAS STARTED ON NORMAL SALINE AT 125 ML/HR, VALIUM 10MG PO HS, AND HER HOME MEDICATIONS WERE RESUMED. WE PLANNED TO OBTAIN A BRAIN MRI TO RULE OUT CVA, A CAROTID DOPPLER, AND AN ECHO. OTHERWISE, WE PLANNED TO FOLLOW-UP WITH AM LABS AND CONTINUE TO MONITOR. - Discharge Medications Discharge Medications: Home Medication List celecoxib 200 mg PO BID 10/16/21 [History] Prescriptions: - Discharge Plan Disposition: 01 HOME, SELF-CARE Condition: Stable - Follow up/Referrals Follow up/Referrals: Gerber Rios [Primary Care Provider] - 3 days - Instructions
[2021-10-16] MEDS ORDERED: SYNTHROID 25 mcg TAB PO SCH (11:00)
[2021-10-16] MEDS ORDERED: CELEBREX PO SCH (11:00)
[2021-10-16] MEDS ORDERED: CARAFATE PO SCH (11:00)
[2021-10-16] MEDS ORDERED: PREVACID PO SCH (11:00)
[2021-10-16] MEDS: PREDNISONE TAB 10 MG PO SCH ×2 (11:40→12:06)
--- NOTE | 2021-10-16 12:20 | VAS ---
HISTORYTIA, HYPONATREMIASTUDYCAROTID USCOMPARISONNoneTECHNIQUEMultiple weathers scale and color flow Doppler images of the right and left carotid arterial system were obtained with waveform analysis using NASCET criteria. The vertebral arterial system was evaluated as well.FINDINGSTwo dimensional ultrasound reveals no significant plaque. The right and left vertebral arteries demonstrate antegrade flow.Right ICA peak systolic velocity is 87 cm/sec. Right systolic ratio is 1.2.Left ICA peak systolic velocity is 105 cm/sec. Left systolic ratio is 1.3.IMPRESSIONNo hemodynamically significant stenosis.Electronically signed by: Mu Armstrong (October 16, 2021 12:19:34)
--- NOTE | 2021-10-16 15:56 | MRI ---
HISTORYams, decreased loc, dizziness.brSTUDYBRAIN W/O CONCOMPARISONCT [facility] of the brain was obtained utilizing standard departmental protocol. Sagittal and axial T1 weighted images were obtained. Axial T2 and flair weighted images were performed as well. Axial diffusion weighted and ADC trace mapping was performed.FINDINGSThe midline structures appear unremarkable. The evaluation of the brain parenchyma demonstrates no abnormal signal characteristics to suggest intraparenchymal mass or hemorrhage. No extra-axial fluid collections are observed. The ventricular system appears symmetric and nondilated. The CP angle is normal in its appearance without brainstem mass or evidence for acoustic neuroma. The flow voids on both T1 and T2 weighted imaging appear unremarkable. Evaluation of the diffusion weighted imaging does not demonstrate abnormal signal characteristics to suggest acute ischemic change. The extracranial structures are unremarkable.IMPRESSIONUnremarkable MRI of the brain without contrast.Electronically signed by: ESTEPHANIA KELLOGG (October 16, 2021 15:54:52)
[2021-10-16 16:41] VITALS: BP 147/70
== END 2021-10-16 16:30 | disposition home or self-care (01) ==
LOC: MED/SURG 17:11 → ER 17:11 → MED/SURG 20:36
PROVIDERS: ADMIT Internal Medicine; ATTEND Internal Medicine
DX: K21.9 Gastro-esophageal reflux disease without esophagitis; Z96.652 Presence of left artificial knee joint; Z87.81 Personal history of (healed) traumatic fracture; R47.81 Slurred speech; E87.1 Hypo-osmolality and hyponatremia; G45.9 Transient cerebral ischemic attack, unspecified; R41.82 Altered mental status, unspecified; E03.9 Hypothyroidism, unspecified; E78.5 Hyperlipidemia, unspecified; E86.0 Dehydration; Z20.822 Contact with and (suspected) exposure to COVID-19